=== PATIENT | female | born 1975 | race Two or more races ===

== ENCOUNTER → 2024-06-13 | Outpatient (CLI) | payer MEDICAID, SELFPAY | END | disposition home or self-care (01) | LOC: SMRI 06:44 | DX: M51.362 Other intervertebral disc degeneration, lumbar region with discogenic back pain and lower extremity pain (principal) ==

== ENCOUNTER → 2024-09-19 | Outpatient (CLI) | payer MEDICAID, SELFPAY ==
--- NOTE | 2024-09-19 08:00 | XR_ITS ---
Examination: MRI lumbar spine without contrast Date and time of exam: September 19, 2024 0920 hours INDICATIONS: Low back pain radiating down the legs 20 years Technique: Multiple MRI axial and sagittal sections lumbar spine. Sagittal T2-weighted images, TR 3500, TE 118 T1 weighted transverse sections, TR 688 T8.5, T2-weighted sagittal sections T1 weighted sagittal sections TR 621, TE 30 T2 axial sections, TR 4, 190, TE 84. Findings: Moderate to advanced disc narrowing L5-S1 No lumbar fracture Disc desiccation lower 3 lumbar levels No spondylolisthesis L5-S1 4 mm central lumbar disc bulge contiguous with the S1 nerve roots L4-L5 4 mm central lumbar disc bulge More cephalad levels unremarkable IMPRESSION: L5-S1, L4-L5 4 mm central lumbar disc bulges
--- NOTE | 2024-09-19 08:30 | XR_ITS ---
Examination: MRI thoracic spine without contrast. Date and time of exam: September 19, 2024 0920 hours INDICATIONS: Mid back pain 20 years Technique: Multiple sagittal and axial images of the thoracic spine have been obtained. T1 weighted localizer, sagittal T2 weighted images, TR 30-50, TE 148, T1 weighted sagittal images, TR 650, TE 14, T2-weighted transverse images, TR 6770, TE 142 Findings: Satisfactory alignment thoracic vertebral bodies on the lateral view No thoracic fracture Mild diffuse thoracic disc narrowing Diffuse thoracic disc desiccation Normal marrow signal thoracic vertebral bodies No localized enlargement thoracic cord No thoracic disc protrusion impinging upon the thoracic cord Impression: Mild diffuse thoracic degenerative disc disease No thoracic disc protrusion impinging upon the thoracic cord
== END | disposition home or self-care (01) ==
DX: M51.370 Other intervertebral disc degeneration, lumbosacral region with discogenic back pain only (principal); M51.360 Other intervertebral disc degeneration, lumbar region with discogenic back pain only; M51.34 Other intervertebral disc degeneration, thoracic region
CPT/HCPCS: 72146; 72148